=== PATIENT | male | born 1955 | race Caucasian/White ===

== ENCOUNTER 2016-11-27 10:00 | Inpatient (IN) | payer MEDICARE ==
[~2016-11-27] VITALS: Ht 175.3 cm; Wt 57.2 kg
--- NOTE | ~2016-11-27 | HP ---
Unit #: [id number] #: [id number] Patient: BRITANY ROSALES [id number] [place] [address] [id number] MR#: [id number] NAME: BRITANY ROSALES ROOM: P182 Age: 61 Sex: M Admission Date: 11/27/2016 : 1955 Attending Physician: Alden Calvo M.D. Admitting Physician: Alden Calvo M.D. Primary Care Physician: Primary Care Physician No HISTORY AND PHYSICAL HISTORY OF PRESENT ILLNESS Britany is a 61-year-old male admitted on 11/27/2016 to [facility] for detox from alcohol. PAST MEDICAL HISTORY 1. COPD 2. Posttraumatic stress disorder 3. Coronary artery disease 4. Hypertension 5. Hyperlipidemia 6. He is currently being evaluated for GI disease PAST SURGICAL HISTORY 1. Stent placement times two. 2. Colonoscopy. 3. Right ankle fracture that was surgically repaired with plate placement. SOCIAL HISTORY Smokes two and half of packs of cigarettes daily, binge alcohol use and occasional use of marijuana. He is currently and living alone. FAMILY HISTORY Noncontributory. REVIEW OF SYSTEMS CONSTITUTIONAL: No fever or chills. HEENT: Denies any sore throat, ear pain or runny nose. CARDIOVASCULAR: Denies chest pain, irregular heart rhythm or palpitations. CHEST: Denies shortness of breath or cough. No hemoptysis. GASTROINTESTINAL: Denies nausea, vomiting, diarrhea or chronic constipation. ENDOCRINE: Denies history of increased thirst or urination. No recent significant weight loss or gain. GENITOURINARY: Denies dysuria, frequency, or hematuria. SKIN: Denies any rashes. HEMATOLOGIC: Denies history of increased bleeding or bruising. MUSCULOSKELETAL: Denies any hot, swollen joints. No generalized muscle pain. NEUROLOGIC: Denies problems with vision or speech. No frequent, severe headaches. No numbness, tingling or weakness in any extremities. Denies loss of bladder or bowel control. Unit #: [id number] #: [id number] Patient: BRITANY ROSALES CURRENT MEDICATIONS 1. Aspirin 2. Nicotine patch 3. Metoprolol 4. Claritin 5. Flonase 6. Lipitor 7. Pantoprazole 8. Proventil 9. Symbicort 10. Hydroxyzine 11. Melatonin 12. Fluoxetine 13. Seroquel 14. Topamax ALLERGIES No known drug allergies. PHYSICAL EXAMINATION GENERAL: Alert, oriented, in no acute distress. VITAL SIGNS: Blood pressure 161/91, heart rate 81, temperature 98.2. HEIGHT: 5 foot 9 inches. WEIGHT: 126 pounds. SKIN: Warm and dry without rash or lesion. HEENT: Normocephalic. TMs not viewed. Oral and nasal passages clear. Conjunctivae clear. PERRLA. EOMs intact. NECK: Supple without lymphadenopathy or thyromegaly. HEART: Regular rate and rhythm without murmur. LUNGS: Clear. ABDOMEN: Soft, nontender, without masses or hepatosplenomegaly. : Not done. EXTREMITIES: No evidence of cyanosis, clubbing or edema. Moves all without focal deficit. NEUROLOGICAL: Grossly within normal limits. Cranial Nerves: II: Visual chambers are intact. III, IV AND : Extraocular movements are intact. Pupils are equal, round and reactive to light. V: Facial sensation is grossly normal. VII: Facial movements and expression are normal. VIII: Auditory acuity grossly intact. IX, X: Uvula is midline. Phonation is normal. XI: Patient shrugs shoulders and turns head normally. XII: Tongue protrudes in the midline. Sensory and Motor Function: Sensory and motor sensation is grossly normal. Motor: moves all extremities well. Coordination: Gait is normal. Deep Tendon Reflexes: Intact. IMPRESSION 1. Psychiatric admission. 2. COPD. 3. PTSD. 4. Coronary artery disease. 5. GI disorder. 6. Hypertension. 7. Hyperlipidemia. RECOMMENDATIONS Psychiatric, per psychiatrist. Unit #: [id number] #: [id number] Patient: BRITANY ROSALES MEDICAL: I see no contraindications to participating in facility's activities. MEDICAL PROGNOSIS Good. MEDICAL CONDITION Stable. Dictated by... Christi BowlingPJuliannaRJillian LEWIS/deborah TD: 11/28/2016 01:24 JOB #: [id number] HISTORY AND PHYSICAL Page 1 of 1 X YUDITH RAMIREZ APRN X HISTORY AND PHYSICAL
[2016-11-28 09:36] LABS: BASOPHIL% 0.6 % (0-2.5); EOSINOPHIL# 0.4 X10e3 (0-0.7); EOSINOPHIL% 6.2 % (0.0-7.0); HEMATOCRIT 41.7 % (38.0-50.0); HEMOGLOBIN 13.2 gm/dL (13.0-16.0); LYMPHOCYTE# 2.3 X10e3 (1.0-3.5); LYMPHOCYTE% 32.9 % (17.0-45.0); MEAN CELL VOLUME 85.6 FL (83-96); MEAN CORPUSCULAR HGB CONC 31.5 g/dL (30-36); MEAN PLATELET VOLUME 8.6 FL (6.5-11.5); MONOCYTE# 0.8 X10e3 (0-1.0); MONOCYTE% 12.3 % (3.0-12.0); NEUTROPHIL# 3.3 X10e3 (1.5-7.1); PLATELET COUNT 209 X10e3 (140-420); RED BLOOD COUNT 4.88 X10e (3.90-5.60); RED CELL DISTRIBUTION WIDTH 19.6 % (11.0-15.5); WHITE BLOOD COUNT 6.9 X10e3 (4.0-10.5)
[2016-11-28 09:38] LABS: DIFF IND NO
[2016-11-28 10:25] LABS: ALBUMIN SERUM 3.8 g/dL (3.5-5.0); BILIRUBIN,TOTAL 0.9 mg/dL (0.2-2.0); BUN/CREATININE RATIO 13.33; CALCIUM SERUM 9.2 mg/dL (8.4-10.2); CREATININE SERUM 0.9 mg/dL (0.6-1.4); GLOM FILT RATE Estimated 93.2 mL/min (>60); POTASSIUM 3.9 mmol/L (3.5-5.1); PROTEIN TOTAL SERUM 6.9 g/dL (6.0-8.3)
== END 2016-11-28 11:25 | DRG 897 ==
LOC: P1E 11:43
PROVIDERS: Psychiatry & Neurology Psychiatry
DX: F10.20 Alcohol dependence, uncomplicated (principal); R45.851 Suicidal ideations; F43.10 Post-traumatic stress disorder, unspecified; J44.9 Chronic obstructive pulmonary disease, unspecified; I25.10 Atherosclerotic heart disease of native coronary artery without angina pectoris; I10 Essential (primary) hypertension; E78.5 Hyperlipidemia, unspecified; F17.210 Nicotine dependence, cigarettes, uncomplicated; Z79.82 Long term (current) use of aspirin; K21.9 Gastro-esophageal reflux disease without esophagitis; F32.9 Major depressive disorder, single episode, unspecified
CPT/HCPCS: 80053; 85025; 86592